=== PATIENT | male | born 1990 | race Caucasian/White ===

== ENCOUNTER 2022-10-11 07:37 | Day surgery (SDC) | payer OTHER ==
[~2022-10-11] VITALS: Ht 170.2 cm; Wt 91.6 kg
[2022-10-11] MEDS ORDERED: fentaNYL citrate 0.05 MG/ML VIAL ONE (09:12)
[2022-10-11] MEDS ORDERED: LIDOCAINE 2% 100 MG/5 ML UJET TP ONE (09:13)
[2022-10-11] MEDS ORDERED: fentaNYL citrate 0.05 MG/ML VIAL IVP ONE (10:15)
== END 2022-10-11 11:32 | disposition home or self-care (01) ==
LOC: MDS 07:37 → MMU 07:38 → MDS 11:32
PROVIDERS: ATTEND Internal Medicine Gastroenterology
DX: K62.5 Hemorrhage of anus and rectum (principal); K21.9 Gastro-esophageal reflux disease without esophagitis; F41.9 Anxiety disorder, unspecified; Z79.899 Other long term (current) drug therapy; Z20.822 Contact with and (suspected) exposure to COVID-19
CPT/HCPCS: 45378; 87426; J3010

== ENCOUNTER 2022-12-05 18:59 | Emergency (ER) | payer OTHER ==
[~2022-12-05] VITALS: Ht 170.2 cm; Wt 86.2 kg
--- NOTE | 2022-12-05 19:09 | NUR ---
DR. MAURO EVALUATING PATIENT ON [facility].
[2022-12-05 19:15] VITALS: BP 156/101
--- NOTE | 2022-12-05 19:15 | NUR ---
PT TO BED #3
[2022-12-05 19:31] LABS: BASOPHILS % (AUTO) 0.4 % (0.0-2.0); EOSINOPHILS # (AUTO) 0.1 K/uL (0-0.4); EOSINOPHILS % (AUTO) 1.8 % (0.0-4.0); HEMATOCRIT 45.5 % (36-52); HEMOGLOBIN 15.9 g/dL (12.0-18.0); LYMPHOCYTES # (AUTO) 2.4 K/uL (2.0-11.5); LYMPHOCYTES % (AUTO) 30.6 % (20.5-51.1); MEAN CORPUSCULAR HEMOGLOBIN 29 pg (27-31); MEAN CORPUSCULAR HGB CONC 35 g/dL (33-37); MONOCYTES # (AUTO) 0.7 K/uL (0.8-1.0); MONOCYTES % (AUTO) 9.3 % (1.7-9.3); NEUTROPHILS # (AUTO) 4.6 K/uL (1.8-7.7); NEUTROPHILS % (AUTO) 57.9 % (42.2-75.2); PLATELET COUNT (AUTO) 187 K/uL (140-450); RED BLOOD CELL COUNT(AUTO) 5.41 MIL/uL (4.20-6.10); RED CELL DISTRIBUTION WIDTH 13.6 % (11.6-13.7)
[2022-12-05 19:46] LABS: ALBUMIN 3.9 g/dL (3.4-5.0); ANION GAP 12.3 (8-16); ASPARTATE AMINOTRANSFERASE 23 U/L (15-37); CARBON DIOXIDE 27.3 mmol/L (21-32); CHLORIDE 102 mmol/L (98-107); CREATININE 0.9 mg/dL (0.6-1.3); GFR ARICAN-AMERICAN 126 mL/min (>90); GLUCOSE 103 mg/dL (74-106); LIPASE 75 U/L (73-393); POTASSIUM 3.6 mmol/L (3.5-5.1); SODIUM SERUM 138 mmol/L (136-145); TOTAL BILIRUBIN 0.5 mg/dL (0.0-1.0); UREA NITROGEN, BLOOD 8 mg/dL (7-18)
--- NOTE | 2022-12-05 19:46 | NUR ---
Patient resting in bed, A/Ox4, chest rise and fall symmetrical, no s/s of distress, on monitor.
[2022-12-05] MEDS ORDERED: BENZ-315 PO (20:17)
[2022-12-05] MEDS ORDERED: MULT-2253 PO (20:17)
[2022-12-05] MEDS ORDERED: OMEP20EC11 PO (20:17)
[2022-12-05] MEDS ORDERED: QUET50TA15 PO (20:17)
[2022-12-05] MEDS ORDERED: FLUO10CA21 PO (20:17)
[2022-12-05] MEDS ORDERED: DOCU-299 PO (20:17)
[2022-12-05] MEDS ORDERED: ABI10 PO (20:17)
--- NOTE | 2022-12-05 21:00 | NUR ---
Patient resting in bed, A/Ox4, chest rise and fall symmetrical, no c/o pain or s/s of distress, on monitor.
[2022-12-05] MEDS ORDERED: LIDOCAINE 5% 1 EA PATCH TP ONE (22:40)
[2022-12-05] MEDS ORDERED: KETOROLAC 30 MG/ML VIAL IM ONE (22:40)
[2022-12-05] MEDS ORDERED: IBUP-2213 PO (22:41)
[2022-12-05] MEDS ORDERED: LID5T TP (22:41)
--- NOTE | 2022-12-05 23:02 | NUR ---
Patient resting in bed, A/Ox4, chest rise and fall symmetrical, no c/o pain or s/s of distress, on monitor.
[2022-12-05 23:20] VITALS: BP 129/74
--- NOTE | 2022-12-05 23:20 | NUR ---
Patient discharged with v/s stable. Written and verbal after care instructions given and explained. Patient alert, oriented and verbalized understanding of instructions. Ambulatory with by caregiver. All questions addressed prior to discharge. ID band removed. Patient advised to follow up with PMD. Rx given to caregiver Lashay Cade. Patient educated on indication of medication including possible reaction and side effects. Opportunity to ask questions provided and answered.
== END 2022-12-05 23:20 | disposition home or self-care (01) ==
LOC: MED 18:59
DX: R07.89 Other chest pain (principal); I10 Essential (primary) hypertension; Z79.899 Other long term (current) drug therapy; Z79.1 Long term (current) use of non-steroidal anti-inflammatories (NSAID)
CPT/HCPCS: 36415; 71045; 80053; 83690; 84484; 85025; 93005; 96372; 99285; J1885